=== PATIENT | male | born 1995 | race Caucasian/White ===

== ENCOUNTER 2022-06-12 01:56 | Emergency (ER) | payer OTHER ==
[~2022-06-12] VITALS: Ht 167.6 cm; Wt 70.3 kg
[2022-06-12 02:07] VITALS: BP 140/80
--- NOTE | 2022-06-12 02:07 | NUR ---
[id number] C/O PEPPRY SPRAY TO EYES X 1 HR AGO. PT A/OX3. TOLERATING R/A WELL WITH NO SOB. AMB WITH STEADY GAIT.
[2022-06-12] MEDS ORDERED: TETRAcaine 5 ML BOTTLE EACHEYE ONE (02:30)
--- NOTE | 2022-06-12 02:30 | NUR ---
EMT AT PT'S BEDSIDE FLUSHING EYE
== END 2022-06-12 03:10 | disposition home or self-care (01) ==
LOC: ER 02:07
DX: T65.891A Toxic effect of other specified substances, accidental (unintentional), initial encounter (principal); Z60.2 Problems related to living alone; Y92.89 Other specified places as the place of occurrence of the external cause